=== PATIENT | male | born 1995 | race Two or more races ===

== ENCOUNTER 2016-03-11 10:07 | Emergency (ER) | payer BC, OTHER ==
[2016-03-11 10:20] VITALS: BP 119/69; PULSE 59; TEMP 98.4; BMI 30.2
--- NOTE | 2016-03-11 10:53 | PDOC ---
History of Present Illness - General History Source: Patient Exam Limitations: No Limitations - History of Present Illness Initial Comments: 03/11/16 10:55 The patient is a 20-year-old man, current everyday cigarette smoker, accompanied by family with no past medical history who presents to the emergency department via walk-in for further evaluation of abdominal pain since this morning. He describes his abdominal pain as an achy, constant, diffuse sensation with a 9/10 in severity that is associated nausea and vomiting (non- bloody/non-bilious). He does not provide any exacerbating/alleviating factors. No trauma/recent sick contacts, recent travel. He denies chest pain, cough, shortness of breath, headache, fevers, chills. Allergies: None Known Past Surgical History: None reported Social History: Current everyday cigarette smoker (approximately 2 cigarettes/ day). No ETOH and recreational drug use. Primary Care Physician: Dr. Pita Newton [phone] <Yamile Du - Last Filed: 03/11/16 11:06> <Michelle Wharton - Last Filed: 03/11/16 18:40> - General Chief Complaint: Nausea/Vomiting Stated Complaint: VOMITING, ABD PAIN Time Seen by Provider: 03/11/16 10:52 Past History <Yamile Du - Last Filed: 03/11/16 11:06> - Past Medical History Other medical history: denies - Immunization History Immunization Up to Date: Yes - Psycho/Social/Smoking Cessation Hx Anxiety: No Suicidal Ideation: No Smoking History: Current some day smoker Have you smoked in the past 12 months: Yes Number of Cigarettes Smoked Daily: 2 Information on smoking cessation initiated: No Hx Alcohol Use: No Drug/Substance Use Hx: No Substance Use Type: None <Michelle Wharton - Last Filed: 03/11/16 18:40> - Past Medical History Allergies/Adverse Reactions: Allergies Allergy/AdvReac Type Severity Reaction Status Date / Time No Known Allergies Allergy Verified 03/11/16 10:18 Home Medications: Ambulatory Orders NK [No Known Home Medication] 03/11/16 Review of Systems - Review of Systems Able to Perform ROS?: Yes Comments:: 03/11/16 10:57 GENERAL/CONSTITUTIONAL: No fever or chills. No weakness. HEAD, EYES, EARS, NOSE AND THROAT: No change in vision. No ear pain or discharge. No sore throat. CARDIOVASCULAR: No chest pain or shortness of breath. RESPIRATORY: No cough, wheezing, or hemoptysis. GASTROINTESTINAL:Yes: +Abdominal Pain. +Nausea +Vomiting. No diarrhea or constipation. GENITOURINARY: No dysuria, frequency, or change in urination. MUSCULOSKELETAL: No joint or muscle swelling or pain. No neck or back pain. SKIN: No rash NEUROLOGIC: No headache, vertigo, loss of consciousness, or change in strength/ sensation. ENDOCRINE: No increased thirst. No abnormal weight change. HEMATOLOGIC/LYMPHATIC: No anemia, easy bleeding, or history of blood clots. ALLERGIC/IMMUNOLOGIC: No hives or skin allergy. <Yamile Du - Last Filed: 03/11/16 11:06> *Physical Exam - Vital Signs Last Vital Signs Temp Pulse Resp BP Pulse Ox 98.4 F 59 L 20 119/69 98 03/11/16 10:18 03/11/16 10:18 03/11/16 10:18 03/11/16 10:18 03/11/16 10:18 - Physical Exam Comments: 03/11/16 10:57 GENERAL: Awake, alert, and fully oriented, in no acute distress HEAD: No signs of trauma EYES: PERRLA, EOMI, sclera anicteric, conjunctiva clear ENT: Auricles normal inspection, hearing grossly normal, nares patent, oropharynx clear without exudates. Dry mucosa NECK: Normal ROM, supple, no lymphadenopathy, JVD, or masses LUNGS: Breath sounds equal, clear to auscultation bilaterally. No wheezes, and no crackles HEART: Regular rate and rhythm, normal S1 and S2, no murmurs, rubs or gallops ABDOMEN: Soft, there is mild diffuse tenderness to palpation, normoactive bowel sounds. No guarding, no rebound. No masses EXTREMITIES: Normal range of motion, no edema. No clubbing or cyanosis. No cords, erythema, or tenderness NEUROLOGICAL: Cranial nerves II through XII grossly intact. Normal speech <Yamile Du - Last Filed: 03/11/16 11:06> - Vital Signs Last Vital Signs Temp Pulse Resp BP Pulse Ox 98.4 F 59 L 20 119/69 98 03/11/16 10:18 03/11/16 10:18 03/11/16 10:18 03/11/16 10:18 03/11/16 10:18 <Michelle Wharton - Last Filed: 03/11/16 18:40> ED Treatment Course - LABORATORY CBC & Chemistry Diagram: 03/11/16 11:25 03/11/16 11:25 <Michelle Wharton - Last Filed: 03/11/16 18:40> Medical Decision Making - Medical Decision Making 03/11/16 14:01 Patient reassessed. He states that the pain has returned. No focal findings on exam. Will obtain CT for further evaluation. 03/11/16 16:32 Pt reports improvement in symptoms. CT no acute findings. Tolerated juice and crackers PO. Stable for DC home. <Michelle Wharton - Last Filed: 03/11/16 18:40> *DC/Admit/Observation/Transfer - Attestations Scribe Attestion: 03/11/16 10:57 Documentation prepared by aYmile Du, acting as medical dermatologist for Michelle Wharton MD. <Yamile Du - Last Filed: 03/11/16 11:06> - Discharge Dispostion Admit: No <Michelle Wharton - Last Filed: 03/11/16 18:40> Diagnosis at time of Disposition: Abdominal pain Qualifiers: Abdominal location: generalized Qualified Code(s): R10.84 - Generalized abdominal pain Nausea and vomiting Qualifiers: Vomiting type: unspecified Vomiting Intractability: non-intractable Qualified Code(s): R11.2 - Nausea with vomiting, unspecified - Discharge Dispostion Disposition: HOME Condition at time of disposition: Improved - Referrals Referrals: Pita Newton MD [Primary Care Provider] - - Patient Instructions Printed Discharge Instructions: DI for Abdominal Pain-Adult, DI for Vomiting - - Adult
[2016-03-11] MEDS ORDERED: FAMOTIDINE 20 MG/50 ML IVPB 50 ML IVPB ONE ×2 (11:01→11:11)
[2016-03-11] MEDS ORDERED: SODIUM CHLORIDE 1,000 ML IV STA ×2 (11:01→12:41)
[2016-03-11] MEDS ORDERED: ONDANSETRON 4 MG/2 ML VIAL IVPUSH ONE ×2 (11:01→12:41)
[2016-03-11] MEDS ORDERED: ONDANSETRON 4 MG/2 ML VIAL ONE ×2 (11:11→12:44)
[2016-03-11 11:40] LABS: BASOPHIL 0.2 % (0-2.0); MCH 29.2 pg (25.7-33.7); MCHC 33.9 g/dl (32.0-35.9); MEAN CELL VOLUME 86.2 fl (80-96); MEAN PLT VOLUME 9.3 fl (7.5-11.1); NEUTROPHILS 91.1 % (42.8-82.8); PLATELET COUNT 187 K/MM3 (134-434); RDW 13.7 % (11.9-15.9); WHITE BLOOD COUNT 13.5 K/mm3 (4.0-10.0)
[2016-03-11 12:08] LABS: ALBUMIN 4.8 g/dl (3.4-5.0); ANION GAP 8 (8-16); BILIRUBIN,TOTAL 1.1 mg/dL (0.2-1.0); CALCIUM 9.4 mg/dL (8.5-10.1); CO2 24 mmol/L (21-32); CREATININE 0.6 mg/dL (0.7-1.3); GLUCOSE,RANDOM 121 mg/dL (74-106); SGOT/AST 44 U/L (15-37); SGPT/ALT 25 U/L (12-78); TOT PROT 7.9 g/dl (6.4-8.2)
[2016-03-11 12:10] LABS: ALK PHOS 66 U/L (45-117)
[2016-03-11] MEDS ORDERED: KETOROLAC TROMETHAMINE 30 MG/1 ML VIAL IVPUSH ONE (12:41)
[2016-03-11] MEDS ORDERED: KETOROLAC TROMETHAMINE 30 MG/1 ML VIAL ONE (12:44)
[2016-03-11] MEDS ORDERED: morphine CARPU-JECT 2 MG/1 ML DISP.SYRIN IVPUSH ONE ×2 (13:13→14:01)
[2016-03-11] MEDS ORDERED: morphine CARPU-JECT 2 MG/1 ML DISP.SYRIN ONE ×2 (13:16→14:21)
== END 2016-03-11 17:01 | disposition home or self-care (01) ==
LOC: JER 10:07
PROC: 3E033GC Introduction of Other Therapeutic Substance into Peripheral Vein, Percutaneous Approach (ICD-10-PCS; principal; 2016-03-11)
PROC: 3E033NZ Introduction of Analgesics, Hypnotics, Sedatives into Peripheral Vein, Percutaneous Approach (ICD-10-PCS; 2016-03-11)
PROC: 3E0333Z Introduction of Anti-inflammatory into Peripheral Vein, Percutaneous Approach (ICD-10-PCS; 2016-03-11)
PROC: 3E0337Z Introduction of Electrolytic and Water Balance Substance into Peripheral Vein, Percutaneous Approach (ICD-10-PCS; 2016-03-11)
DX: R10.84 Generalized abdominal pain (principal); R11.2 Nausea with vomiting, unspecified; F17.210 Nicotine dependence, cigarettes, uncomplicated
CPT/HCPCS: 36415; 74177-TC; 80053; 83690; 85025; 99283-25

== ENCOUNTER 2016-03-12 09:37 | Emergency (ER) | payer BC, OTHER ==
[2016-03-12] MEDS ORDERED: ONDANSETRON 4 MG/2 ML VIAL ONE ×2 (10:09→11:58)
[2016-03-12] MEDS ORDERED: FAMOTIDINE 20 MG/50 ML IVPB 50 ML IVPB ONE (10:09)
[2016-03-12] MEDS ORDERED: ONDANSETRON 4 MG/2 ML VIAL IVPUSH ONE ×2 (10:10→11:57)
[2016-03-12] MEDS ORDERED: FAMOTIDINE 20 MG/50 ML IVPB 20 MG in PREMIX 50 IVPB ONE (10:10)
[2016-03-12] MEDS ORDERED: SODIUM CHLORIDE 1,000 ML IV STA ×2 (10:10→11:57)
--- NOTE | 2016-03-12 10:18 | PDOC ---
History of Present Illness - General Stated Complaint: ABDOMINAL PAIN,NAUSEA Time Seen by Provider: 03/12/16 09:46 History Source: Patient Exam Limitations: No Limitations - History of Present Illness Initial Comments: 03/12/16 10:07 20-year-old male presents to the ED with complaints of nausea vomiting and generalized pain greater in the epigastric region since yesterday morning. Patient states came to the ER yesterday had labs CAT scan and was sent home after he felt better but states pain returned with nausea and vomiting through the night and has vomited approximately 8 times since then. Patient denies fever , chills, headache, chest pain, shortness of breath, dysuria, or diarrhea. Patient states no medical history and does not take anything for the above. Timing/Duration: reports: constant Quality: reports: mild, cramping Abdominal Pain Onset Location: reports: epigastric Pain Radiation: reports: no radiation Activities at Onset: reports: none Aggravating Factors: improves with: None Alleviating Factors: improves with: None Past History - Past Medical History Allergies/Adverse Reactions: Allergies Allergy/AdvReac Type Severity Reaction Status Date / Time No Known Allergies Allergy Verified 03/11/16 10:18 Home Medications: Ambulatory Orders Metoclopramide HCl [Reglan] 10 mg PO BID PRN #10 tablet 03/12/16 - Immunization History Immunization Up to Date: Yes - Psycho/Social/Smoking Cessation Hx Anxiety: No Suicidal Ideation: No Smoking History: Current some day smoker Have you smoked in the past 12 months: Yes Number of Cigarettes Smoked Daily: 2 Hx Alcohol Use: No Drug/Substance Use Hx: No Substance Use Type: None Patient Lives Alone: No Lives with/in: parents Review of Systems - Review of Systems Able to Perform ROS?: Yes Constitutional: No: Symptoms Reported HEENTM: No: Symptoms Reported Respiratory: No: Symptoms reported Cardiac (ROS): No: Symptoms Reported ABD/GI: Yes: Nausea, Vomiting, Abdominal cramping Musculoskeletal: No: Symptoms Reported Integumentary: No: Symptoms Reported Neurological: No: Symptoms reported Endocrine: No: Symptoms Reported Hematologic/Lymphatic: No: Symptoms Reported *Physical Exam - Physical Exam General Appearance: Yes: Nourished, Appropriately Dressed. No: Apparent Distress HEENT: positive: EOMI, PAMELLA, Pharynx Normal. negative: Pale Conjunctivae Neck: positive: Supple Respiratory/Chest: positive: Lungs Clear, Normal Breath Sounds, Respiratory Distress. negative: Accessory Muscle Use Cardiovascular: positive: Regular Rhythm, Regular Rate. negative: Murmur Gastrointestinal/Abdominal: positive: Soft, Tenderness (epigastric) Musculoskeletal: negative: CVA Tenderness Extremity: positive: Normal Capillary Refill. negative: Pedal Edema Integumentary: positive: Normal Color, Warm, Moist Neurologic: positive: Motor Strength 5/5 (ambulatory) ED Treatment Course - LABORATORY CBC & Chemistry Diagram: 03/12/16 11:08 03/12/16 10:30 Medical Decision Making - Medical Decision Making 03/12/16 10:17 Patient with nausea vomiting epigastric pain since yesterday. Patient had an abdominal CT done here which was negative for acute findings. Patient given fluids and morphine with good effect. Patient was tolerating by mouth pro-time of discharge. Patient states was sent home with no medication and states pain returned last night. Patient did have epigastric tenderness with no right upper quadrant tenderness. Patient had normal vital signs upon arrival. Patient ordered for labs including CBC, comp magnesium urine since no urine was obtained yesterday. Patient also had Zofran, Pepcid and fluids ordered.. 03/12/16 12:26 Laboratory Tests 03/12/16 03/12/16 10:30 11:08 WBC 12.5 H Hgb 15.8 Hct 47.2 Neutrophils % 83.5 H Sodium 140 Potassium 4.0 Chloride 104 Carbon Dioxide 26 BUN 8 Creatinine 1.0 D Random Glucose 96 D Magnesium 2.0 Total Bilirubin 2.3 H D AST 48 H ALT 26 Pt ordered for lipase and 2nd bag of fluid. Pt states nausea is returning so zofran ordered 03/12/16 13:19 Laboratory Tests 03/12/16 03/12/16 10:30 10:30 D-Dimer < 200 Lipase 55 L 03/12/16 15:48 Patient now tolerating ice chips and crackers. Patient will be discharged home with Reglan as even after the second dose of Zofran, and the nausea returned. Patient forgot to give urine specimen so explained to patient I need a urine specimen. Patient will try to obtain presently otherwise patient will be discharged home 03/12/16 16:31 Laboratory Tests 03/12/16 15:33 Urine Ketones Trace H Urine Blood Negative Urine Nitrite Negative Ur Leukocyte Esterase Negative *DC/Admit/Observation/Transfer Diagnosis at time of Disposition: Nausea and vomiting Qualifiers: Vomiting type: unspecified Vomiting Intractability: intractable Qualified Code( s): R11.2 - Nausea with vomiting, unspecified Abdominal pain Qualifiers: Abdominal location: epigastric Qualified Code(s): R10.13 - Epigastric pain - Discharge Dispostion Disposition: HOME Condition at time of disposition: Improved - Prescriptions Prescriptions: Metoclopramide HCl [Reglan] 10 mg PO BID PRN #10 tablet PRN Reason: Nausea - Referrals Referrals: Pita Newton MD [Primary Care Provider] - - Patient Instructions Printed Discharge Instructions: Nausea and Vomiting-Adult Additional Instructions: Clear liquids today. Advance to soft foods tomorrow. May take Reglan as needed for nausea. If symptoms worsen may return to the ED.
[2016-03-12 10:40] VITALS: BMI 30.2
[2016-03-12] MEDS ORDERED: morphine CARPU-JECT 2 MG/1 ML DISP.SYRIN IVPUSH ONE (10:50)
[2016-03-12] MEDS ORDERED: morphine CARPU-JECT 4 MG/1 ML DISP.SYRIN ONE (10:51)
[2016-03-12 11:21] LABS: BASOPHIL 0.4 % (0-2.0); EOSINOPHIL 0.1 % (0-4.5); MCH 28.9 pg (25.7-33.7); MCHC 33.4 g/dl (32.0-35.9); MEAN CELL VOLUME 86.6 fl (80-96); MEAN PLT VOLUME 9.7 fl (7.5-11.1); NEUTROPHILS 83.5 % (42.8-82.8); PLATELET COUNT 199 K/MM3 (134-434); RDW 13.7 % (11.9-15.9); WHITE BLOOD COUNT 12.5 K/mm3 (4.0-10.0)
[2016-03-12 11:36] LABS: ALBUMIN 4.8 g/dl (3.4-5.0); ALK PHOS 75 U/L (45-117); ANION GAP 10 (8-16); BILIRUBIN,TOTAL 2.3 mg/dL (0.2-1.0); CALCIUM 9.8 mg/dL (8.5-10.1); CO2 26 mmol/L (21-32); GLUCOSE,RANDOM 96 mg/dL (74-106); SGOT/AST 48 U/L (15-37); SGPT/ALT 26 U/L (12-78); TOT PROT 8.1 g/dl (6.4-8.2)
[2016-03-12] MEDS ORDERED: METOCLOPRAMIDE HCL INJECTION 10 MG/2 ML VIAL IVPB ONE (13:19)
[2016-03-12] MEDS ORDERED: METOCLOPRAMIDE HCL INJECTION 10 MG/2 ML VIAL ONE (13:38)
[2016-03-12 16:03] LABS: URINE APPEARANCE CLEAR; URINE BILIRUBIN NEGATIVE (NEGATIVE); URINE BLOOD NEGATIVE (NEGATIVE); URINE COLOR YELLOW; URINE GLUCOSE (UA) NEGATIVE (NEGATIVE); URINE KETONE TRACE (NEGATIVE); URINE LEUK ESTERASE NEGATIVE (NEGATIVE); URINE NITRITE NEGATIVE (NEGATIVE); URINE PROTEIN NEGATIVE (NEGATIVE); URINE UROBILINOGEN NEGATIVE E.U./dl (0.2-1.0)
[2016-03-12 16:37] VITALS: BP 109/59; PULSE 82; TEMP 98.1
--- NOTE | 2016-03-12 17:17 | PDOC ---
*Physical Exam - Vital Signs Last Vital Signs Temp Pulse Resp BP Pulse Ox 98.1 F 82 16 109/59 100 03/12/16 16:35 03/12/16 16:35 03/12/16 16:35 03/12/16 16:35 03/12/16 16:35 ED Treatment Course - LABORATORY CBC & Chemistry Diagram: 03/12/16 11:08 03/12/16 10:30 - ADDITIONAL ORDERS Additional order review: Laboratory Results 03/12/16 03/12/16 03/12/16 15:33 10:30 10:30 D-Dimer < 200 Sodium 140 Potassium 4.0 Chloride 104 Carbon Dioxide 26 Anion Gap 10 BUN 8 Creatinine 1.0 D Creat Clearance w eGFR > 60 Random Glucose 96 D Calcium 9.8 Magnesium 2.0 Total Bilirubin 2.3 H D AST 48 H ALT 26 Alkaline Phosphatase 75 Total Protein 8.1 Albumin 4.8 Lipase 55 L Urine Color Yellow Urine Appearance Clear Urine pH 6.0 Ur Specific [place] 1.017 Urine Protein Negative Urine Glucose (UA) Negative Urine Ketones Trace H Urine Blood Negative Urine Nitrite Negative Urine Bilirubin Negative Urine Urobilinogen Negative Ur Leukocyte Esterase Negative 03/12/16 11:08 RBC 5.45 MCV 86.6 MCHC 33.4 RDW 13.7 MPV 9.7 Neutrophils % 83.5 H Lymphocytes % 13.1 D Monocytes % 2.9 L D Eosinophils % 0.1 D Basophils % 0.4 - Medications Given in the ED: ED Medications Discontinued Medications Generic Name Dose Route Start Last Admin Trade Name Freq PRN Reason Stop Dose Admin Famotidine/Sodium Chloride 20 50 mls @ 100 mls/hr 03/12/16 10:10 03/12/16 10:13 mg/ Miscellaneous IVPB 03/12/16 10:39 100 mls/hr ONCE ONE Administration Sodium Chloride 1,000 mls @ 1,000 mls/hr 03/12/16 10:10 03/12/16 10:15 Normal Saline - IV 03/12/16 11:09 1,000 mls/hr ASDIR STA Administration Sodium Chloride 1,000 mls @ 1,000 mls/hr 03/12/16 11:57 03/12/16 12:05 Normal Saline - IV 03/12/16 12:56 1,000 mls/hr ASDIR STA Administration Metoclopramide HCl 10 mg 03/12/16 13:19 03/12/16 13:42 Reglan Injection - IVPB 03/12/16 13:20 10 mg ONCE ONE Administration Morphine Sulfate 4 mg 03/12/16 10:50 03/12/16 10:54 Morphine Injection - IVPUSH 03/12/16 10:51 4 mg ONCE ONE Administration Ondansetron HCl 4 mg 03/12/16 10:10 03/12/16 10:12 Zofran Injection IVPUSH 03/12/16 10:11 4 mg ONCE ONE Administration Ondansetron HCl 4 mg 03/12/16 11:57 03/12/16 12:05 Zofran Injection IVPUSH 03/12/16 11:58 4 mg ONCE ONE Administration Medical Decision Making - Medical Decision Making 03/12/16 17:16 20 yo M presenting to the ER with N/V/ D and epigastric pain Pt seen by Midlevel Provider under my direct supervision Ancillary studies reviewed I agree with plan as outlined by Midlevel Provider *DC/Admit/Observation/Transfer Diagnosis at time of Disposition: Nausea and vomiting Qualifiers: Vomiting type: unspecified Vomiting Intractability: intractable Qualified Code( s): R11.2 - Nausea with vomiting, unspecified Abdominal pain Qualifiers: Abdominal location: epigastric Qualified Code(s): R10.13 - Epigastric pain - Discharge Dispostion Disposition: HOME Condition at time of disposition: Improved - Prescriptions Prescriptions: Metoclopramide HCl [Reglan] 10 mg PO BID PRN #10 tablet PRN Reason: Nausea - Referrals Referrals: Pita Newton MD [Primary Care Provider] - - Patient Instructions Printed Discharge Instructions: Nausea and Vomiting-Adult Additional Instructions: Clear liquids today. Advance to soft foods tomorrow. May take Reglan as needed for nausea. If symptoms worsen may return to the ED. - Post Discharge Activity
== END 2016-03-12 16:37 | disposition home or self-care (01) ==
LOC: JER 09:37
PROC: 3E0337Z Introduction of Electrolytic and Water Balance Substance into Peripheral Vein, Percutaneous Approach (ICD-10-PCS; principal; 2016-03-12)
PROC: 3E033GC Introduction of Other Therapeutic Substance into Peripheral Vein, Percutaneous Approach (ICD-10-PCS; 2016-03-12)
PROC: 3E033NZ Introduction of Analgesics, Hypnotics, Sedatives into Peripheral Vein, Percutaneous Approach (ICD-10-PCS; 2016-03-12)
DX: R10.13 Epigastric pain (principal); R11.2 Nausea with vomiting, unspecified
CPT/HCPCS: 36415; 80053; 81003; 83690; 83735; 85025; 85379; 99283-25

== ENCOUNTER 2016-03-13 08:29 | Observation (INO) | payer OTHER, BC ==
[2016-03-13 08:38] VITALS: BMI 30.2
--- NOTE | 2016-03-13 09:04 | PDOC ---
History of Present Illness <Maximo Patel - Last Filed: 03/13/16 12:03> - History of Present Illness Initial Comments: 03/13/16 09:30 Patient is a 20 year old male, every day smoker, with no significant medical hx who is presenting to the ED with three days of epigastric pain, nausea, vomiting , and some diarrhea. The patient has been to the ED twice in the past two days for the same complaint. He has returned to the ED today because he is unable to keep anything down. Denies fever, chills, or changes in urination. <Juliana Agee - Last Filed: 03/13/16 13:53> - General Chief Complaint: Nausea/Vomiting Stated Complaint: ABDOMINAL PAIN Time Seen by Provider: 03/13/16 09:04 Past History - Immunization History Immunization Up to Date: Yes - Psycho/Social/Smoking Cessation Hx Anxiety: No Suicidal Ideation: No Smoking History: Never smoked Have you smoked in the past 12 months: No Number of Cigarettes Smoked Daily: 2 Information on smoking cessation initiated: No Hx Alcohol Use: Yes ("occasionally") Drug/Substance Use Hx: No Substance Use Type: None <Maximo Patel - Last Filed: 03/13/16 12:03> <Juliana Agee - Last Filed: 03/13/16 13:53> - Past Medical History Allergies/Adverse Reactions: Allergies Allergy/AdvReac Type Severity Reaction Status Date / Time No Known Allergies Allergy Verified 03/13/16 08:35 Home Medications: Ambulatory Orders Metoclopramide HCl [Reglan] 10 mg PO BID PRN #10 tablet 03/12/16 Review of Systems - Review of Systems Comments:: 03/13/16 09:30 CONSTITUTIONAL: Absent: fever, chills, diaphoresis, generalized weakness, malaise, loss of appetite HEENT: Absent: rhinorrhea, nasal congestion, throat pain, throat swelling, difficulty swallowing, mouth swelling, ear pain, eye pain, visual changes CARDIOVASCULAR: Absent: chest pain, syncope, palpitations, irregular heart rate, lightheadedness , peripheral edema RESPIRATORY: Absent: cough, shortness of breath, dyspnea with exertion, orthopnea, wheezing, stridor, hemoptysis GASTROINTESTINAL: Present: epigastric pain, nausea, vomiting, diarrhea Absent: abdominal distension, constipation, melena, hematochezia GENITOURINARY: Absent: dysuria, frequency, urgency, hesitancy, hematuria, flank pain, genital pain MUSCULOSKELETAL: Absent: myalgia, arthralgia, joint swelling SKIN: Absent: rash, itching, pallor HEMATOLOGIC/IMMUNOLOGIC: Absent: easy bleeding, easy bruising, lymphadenopathy, frequent infections ENDOCRINE: Absent: unexplained weight gain, unexplained weight loss, heat intolerance, cold intolerance NEUROLOGIC: Absent: headache, focal weakness or paresthesia, dizziness, unsteady gait, seizure, mental status changes, bladder or bowel incontinence. PSYCHIATRIC: Absent: anxiety, depression, suicidal or homicidal ideation, hallucinations <CyndieJuliana - Last Filed: 03/13/16 13:53> *Physical Exam - Vital Signs Last Vital Signs Temp Pulse Resp BP Pulse Ox 98.4 F 51 L 19 133/75 100 03/13/16 08:35 03/13/16 08:35 03/13/16 08:35 03/13/16 08:35 03/13/16 08:35 <Maximo Patel - Last Filed: 03/13/16 12:03> - Vital Signs Last Vital Signs Temp Pulse Resp BP Pulse Ox 98.4 F 51 L 19 133/75 100 03/13/16 08:35 03/13/16 08:35 03/13/16 08:35 03/13/16 08:35 03/13/16 08:35 - Physical Exam Comments: 03/13/16 09:32 GENERAL: Well developed, well nourished. Awake and alert. No acute distress. HEENT: Normocephalic, atraumatic. PERRLA, EOMI. No conjunctival pallor. Sclera are non- icteric. Dry mucous membranes. Oropharynx is clear. NECK: Supple. Full ROM. No JVD. Carotid pulses 2+ and symmetric, without bruits. No thyromegaly. No lymphadenopathy. CARDIOVASCULAR: Regular rate and rhythm. No murmurs, rubs, or gallops. Distal pulses are 2+ and symmetric. PULMONARY: No evidence of respiratory distress. Lungs clear to auscultation bilaterally. No wheezing, rales or rhonchi. ABDOMINAL: Soft. Epigastric tenderness. Non-distended. No rebound or guarding. No organomegaly. Normoactive bowel sounds. MUSCULOSKELETAL: Normal range of motion at all joints. No bony deformities or tenderness. No CVA tenderness. EXTREMITIES: No cyanosis. No clubbing. No edema. No calf tenderness. SKIN: Warm and dry. Normal capillary refill. No rashes. No jaundice. NEUROLOGICAL: Alert, awake, appropriate. Cranial nerves 2-12 intact. Normal speech. Gait is normal without ataxia. PSYCHIATRIC: Cooperative. Good eye contact. Appropriate mood and affect. <Juliana Agee - Last Filed: 03/13/16 13:53> ED Treatment Course - LABORATORY CBC & Chemistry Diagram: 03/13/16 09:39 03/13/16 09:39 <Maximo Patel - Last Filed: 03/13/16 12:03> - LABORATORY CBC & Chemistry Diagram: 03/13/16 09:39 03/13/16 09:39 - RADIOLOGY Radiograph Interpretation: 03/13/16 13:52 Gallbladder US Impression: Over distended gallbladder without intraluminal stones, thickening of its wall or pericholecystic free fluid. Reported By: Ezio Peoples MD <Juliana Agee - Last Filed: 03/13/16 13:53> *DC/Admit/Observation/Transfer - Discharge Dispostion Admit: Yes <Maximo Patel - Last Filed: 03/13/16 12:03> - Attestations Scribe Attestion: 03/13/16 09:32 Documentation prepared by Juliana Agee, acting as medical transcription for Maximo Patel MD. <Juliana Agee - Last Filed: 03/13/16 13:53> Diagnosis at time of Disposition: Gastroenteritis Nausea and vomiting Qualifiers: Vomiting type: cyclical vomiting Vomiting Intractability: intractable Qualified Code(s): G43.A1 - Cyclical vomiting, intractable Abdominal pain Qualifiers: Abdominal location: epigastric Qualified Code(s): R10.13 - Epigastric pain - Discharge Dispostion Condition at time of disposition: Stable
[2016-03-13] MEDS ORDERED: ONDANSETRON 4 MG/2 ML VIAL ONE (09:19)
[2016-03-13] MEDS ORDERED: ONDANSETRON 4 MG/2 ML VIAL IVPUSH ONE (09:19)
[2016-03-13] MEDS ORDERED: SODIUM CHLORIDE 2,000 ML IV STA (09:20)
[2016-03-13] MEDS ORDERED: FAMOTIDINE 20 MG/50 ML IVPB 50 ML IVPB ONE ×2 (09:21→09:44)
[2016-03-13 10:01] LABS: BASOPHIL 0.5 % (0-2.0); EOSINOPHIL 0.1 % (0-4.5); MCH 29.2 pg (25.7-33.7); MCHC 34.1 g/dl (32.0-35.9); MEAN CELL VOLUME 85.8 fl (80-96); MEAN PLT VOLUME 9.5 fl (7.5-11.1); NEUTROPHILS 73.1 % (42.8-82.8); PLATELET COUNT 184 K/MM3 (134-434); RDW 13.6 % (11.9-15.9); WHITE BLOOD COUNT 9.3 K/mm3 (4.0-10.0)
[2016-03-13] MEDS ORDERED: morphine CARPU-JECT 4 MG/1 ML DISP.SYRIN IVPUSH ONE (10:32)
[2016-03-13 10:35] LABS: ALBUMIN 4.4 g/dl (3.4-5.0); ANION GAP 9 (8-16); BILIRUBIN,TOTAL 3.2 mg/dL (0.2-1.0); CALCIUM 9.2 mg/dL (8.5-10.1); CO2 25 mmol/L (21-32); CREATININE 0.9 mg/dL (0.7-1.3); GLUCOSE,RANDOM 93 mg/dL (74-106); SGOT/AST 62 U/L (15-37); SGPT/ALT 48 U/L (12-78); TOT PROT 7.5 g/dl (6.4-8.2)
[2016-03-13 10:36] LABS: ALK PHOS 69 U/L (45-117)
[2016-03-13] MEDS ORDERED: morphine CARPU-JECT 4 MG/1 ML DISP.SYRIN ONE (10:46)
[2016-03-13 10:51] LABS: URINE APPEARANCE CLEAR; URINE BILIRUBIN NEGATIVE (NEGATIVE); URINE BLOOD NEGATIVE (NEGATIVE); URINE COLOR STRAW; URINE GLUCOSE (UA) NEGATIVE (NEGATIVE); URINE KETONE 1+ (NEGATIVE); URINE LEUK ESTERASE NEGATIVE (NEGATIVE); URINE NITRITE NEGATIVE (NEGATIVE); URINE PROTEIN NEGATIVE (NEGATIVE); URINE UROBILINOGEN NEGATIVE E.U./dl (0.2-1.0)
[2016-03-13] MEDS ORDERED: ONDANSETRON 4 MG/2 ML VIAL IVPB PRN (12:03)
[2016-03-13] MEDS ORDERED: ACETAMINOPHEN 325 MG TABLET (FP) PO PRN (12:03)
[2016-03-13] MEDS ORDERED: SODIUM CHLORIDE 0.9%/KCL 1,000 ML IV SCH (12:15)
[2016-03-13] MEDS ORDERED: SODIUM CHLORIDE 1,000 ML IV SCH (12:15)
[2016-03-13 12:29] LABS: BILIRUBIN,DIRECT 0.6 mg/dL (0.0-0.2)
[2016-03-13] MEDS ORDERED: METOCLOPRAMIDE HCL INJECTION 10 MG/2 ML VIAL IVPB ONE (12:37)
--- NOTE | 2016-03-13 12:37 | HP ---
CHIEF COMPLAINT: Vomiting PCP: Dr. Newton HISTORY OF PRESENT ILLNESS: This is an otherwise healthy 20 year old male who presented to the ED for the third time this week complaining of vomiting/ inability to tolerate oral fluids, epigastric pain, and some diarrhea. Prior workup on these visits included a CT of the abdomen/pelvis which demonstrated no pathology. ER course today was notable for: (1) Tbili 3.2 (2.3 yesterday, 1.1 day before) (2) AST mildly elevated at 62 (3) Mild hypokalemia 3.3 Recent Travel: None, attends [employer] in [place] Social History: College student Smokin cigarettes/daily Alcohol: Occasional Drugs: None Family History: Father with DM, mother with HTN Allergies No Known Allergies Allergy (Verified 03/13/16 08:35) HOME MEDICATIONS:a Medication Instructions Recorded Metoclopramide HCl [Reglan] 10 mg PO BID PRN #10 tablet 03/12/16 REVIEW OF SYSTEMS CONSTITUTIONAL: Absent: fever, chills, diaphoresis, generalized weakness, malaise, weight change HEENT: Absent: rhinorrhea, nasal congestion, throat pain, throat swelling, difficulty swallowing, mouth swelling, ear pain, eye pain, visual changes CARDIOVASCULAR: Absent: chest pain, syncope, palpitations, irregular heart rate, lightheadedness , peripheral edema RESPIRATORY: Absent: cough, shortness of breath, dyspnea with exertion, orthopnea, wheezing, stridor, hemoptysis GASTROINTESTINAL: See HPI GENITOURINARY: Decreased urine output (1-2 times/day) MUSCULOSKELETAL: Absent: myalgia, arthralgia, joint swelling, back pain, neck pain SKIN: Absent: rash, itching, pallor HEMATOLOGIC/IMMUNOLOGIC: Absent: easy bleeding, easy bruising, lymphadenopathy, frequent infections ENDOCRINE: Absent: unexplained weight gain, unexplained weight loss, heat intolerance, cold intolerance NEUROLOGIC: Absent: headache, focal weakness or paresthesias, dizziness, unsteady gait, seizure, mental status changes, bladder or bowel incontinence PSYCHIATRIC: Absent: anxiety, depression, suicidal or homicidal ideation, hallucinations. PHYSICAL EXAMINATION GENERAL: Awake, alert, and fully oriented, in no acute distress. HEAD: Normal with no signs of trauma. EYES: Pupils equal, round and reactive to light, extraocular movements intact, sclera anicteric, conjunctiva clear. No lid lag. EARS, NOSE, THROAT: Ears normal, nares patent, oropharynx clear without exudates. Moist mucous membranes. NECK: Normal range of motion, supple without lymphadenopathy, JVD, or masses. LUNGS: Breath sounds equal, clear to auscultation bilaterally. No wheezes, and no crackles. No accessory muscle use. HEART: Regular rate and rhythm, normal S1 and S2 without murmur, rub or gallop. ABDOMEN: Soft, no focal tenderness, not distended, normoactive bowel sounds, no guarding, no rebound, no masses. No hepatomegaly or splenomegaly. MUSCULOSKELETAL: Normal range of motion at all joints. No bony deformities or tenderness. No CVA tenderness. UPPER EXTREMITIES: 2+ pulses, warm, well-perfused. No cyanosis. No clubbing. Cap refill <2 seconds. No peripheral edema. LOWER EXTREMITIES: 2+ pulses, warm, well-perfused. No calf tenderness. No peripheral edema. NEUROLOGICAL: Cranial nerves II-XII intact. Normal speech. Normal gait. PSYCHIATRIC: Cooperative. Good eye contact. Appropriate mood and affect. SKIN: Warm, dry, normal turgor, no rashes or lesions noted. ASSESSMENT/PLAN: Problem List - Problem (1) Nausea and vomiting Assessment/Plan: -Continue Zofran q6h prn nausea -Reglan 10mg IVPB + Benadryl 12.5mg IVP x 1 now -IV hydration -Follow electrolytes -Clear liquids, advance as tolerated -GI was consulted in ED Code(s): R11.2 - NAUSEA WITH VOMITING, UNSPECIFIED Qualifiers: Vomiting type: cyclical vomiting Vomiting Intractability: intractable Qualified Code(s): G43.A1 - Cyclical vomiting, intractable (2) Total bilirubin, elevated Assessment/Plan: -With mild elevation in AST -Send direct/indirect bili -Gallbladder u/s -Follow -Outpatient GI followup Code(s): R17 - UNSPECIFIED JAUNDICE (3) DVT prophylaxis Assessment/Plan: -Low risk (short expected length of stay) -Early ambulation ADDENDUM: 4:45pm: Notified by RN of HR 43. EKG repeated, sinus elijah 47bpm. Patient denies lightheadedness, chest pain, shortness of breath, or any other symptoms. States that he exercises frequently. Code(s): WQT1441 - Visit type - Emergency Visit Emergency Visit: Yes ED Registration Date: 03/13/16 Care time: The patient presented to the Emergency Department on the above date and was hospitalized for further evaluation of their emergent condition. - New Patient This patient is new to me today: Yes Date on this admission: 03/13/16 - Critical Care Critical Care patient: No
[2016-03-13 13:08] LABS: URINE MARIJUANA THC POSITIVE ng/ml (CUTOFF=50)
--- NOTE | 2016-03-13 13:32 | PN ---
Progress Note (short form) - Note Progress Note: gi consultation please see full dictation non-toxic appearing/ suspect viral illness if improved can f/u as outpatient as discussed d/w ER International Controller thank you, md willie
[2016-03-13] MEDS: SODIUM CHLORIDE 1,000 ML IV SCH (17:24)
--- NOTE | 2016-03-13 21:27 | CONS ---
DATE OF CONSULTATION: 03/13/2016 GASTROENTEROLOGY CONSULTATION HISTORY OF PRESENT ILLNESS: I was asked by the ER to evaluate the patient for abdominal pain, nausea, and vomiting. The patient is a 20-year-old gentleman who goes to [employer]. He has been home on break. He has no past medical history, and apparently he noted that 3 days ago he woke up and he was feeling sick with fevers, chills, nausea, vomiting, and epigastric discomfort. He felt like he was getting the flu. He felt very washed out, weak, and dehydrated, and he presented to [facility] emergency room. At that time, he was hydrated, was told that he probably had a viral illness. He was feeling a lot better. He was given some pain medication and he was sent home. That evening he went home, he ate some crackers, and the following morning he woke up and again he felt quite sick. He was having nausea, he vomited a couple more times, he had 1 loose stool no blood. He felt chills, and he was not able to keep any food down, so his family took him back to the emergency room at which time he was given some morphine and IV fluid. He had a CT scan of the abdomen and pelvis that was completely unremarkable. His blood work noted a minimal elevation in bilirubin. He was treated conservatively, and again he was discharged. Apparently, today the same symptoms ensued, and he came back to the hospital. His mom was concerned he has not eaten in 4 days. He says he had another loose bowel movement. It has not been pure water, it has just been loose no blood, but he has only been going once a day. He thinks he has been urinating concerned about that. He is still feeling some diffuse muscle aches, epigastric discomfort. The pain does not travel anywhere. There is no significant heartburn. He tells me he has never had any GI issues in the past . There is no personal or family history of celiac, Crohn's, or ulcerative colitis. The patient has not had any recent travel, although he had eaten a hamburger the day prior to this all starting. Other family members ate the same food, and no one else had gotten sick. The patient does not take any medication, although when he comes to the ER they sent him home on Zofran, which he had been taking, which has not been helping. Currently in the hospital he has been getting a concoction of Zofran, Tylenol, Pepcid, and IV fluid, and some morphine. He has also gotten some Reglan, and he feels a lot better. The patient states that he normally does not take nonsteroidals, and normally he has no difficulty eating. He has had no prior surgical history, no known drug allergies. 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 He is single. There is no significant family history except his father has diabetes and his mother has hypertension. PHYSICAL EXAMINATION: General: He is in absolutely no acute distress. He is moving about easily. He is well-developed, well-nourished, very healthy appearing gentleman. Skin: Cool. HEENT: Sclerae anicteric. Neck: Supple. Lungs: Clear from anterior. Heart: Regular. Abdomen: Good bowel sounds. Extremely soft. He is not distended. There is no tenderness to deep palpation. No masses, rebound, or guarding. LABORATORY DATA: His white count is 9 with an hemoglobin and hematocrit of 15 over 44 with an MCV of 86 and 184,000 platelets. His chemistries reveal a serum sodium of 137, potassium 3.3, chloride 103, bicarbonate 25, BUN 7, creatinine 0.9, calcium 9.2, magnesium 2. His total bilirubin is 3.2. The direct has been pretty normal at 0.6. AST 62, ALT 48, alkaline phosphatase 69, total protein 7.5, albumin 4.4, lipase 67. His urinalysis is essentially unremarkable and specific gravity is 1.011. In terms of imaging, it is noted he has a CT scan of the abdomen and pelvis. This was done on March 11 which was done with contrast and was completely unremarkable. 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 It all sounds more suspicious for some type of viral illness. It does not sound like a chronic indolent disease such as Crohn's or celiac, but more like a viral syndrome that he has, and I suspect the liver function tests may be involved. The elevated bilaterally likely reflects . There is no evidence of any biliary tract disease. RECOMMENDATION: My recommendation would be continued supportive care, and as an outpatient he should undergo followup of his liver enzymes. If they do not normalize, then we would send off hepatitis serologies and test for esoteric liver disease such as autoimmune hepatitis, hemochromatosis, Johnathan's, things like that. But for now, there is no evidence of ongoing liver disease and family, and I would recommend continued conservative care. I also doubt that he has an ulcer, but if he is unable to keep food down and this persists, certainly we could do an upper endoscopy. We will continue to be available in the aid and management of this patient. LIN HAYES M.D. DARRION/[id number]
[2016-03-13] MEDS: FAMOTIDINE 20 MG/50 ML IVPB 50 ML IVPB SCH (22:00)
[2016-03-14 07:38] LABS: BASOPHIL 0.5 % (0-2.0); EOSINOPHIL 1.2 % (0-4.5); MCH 29.9 pg (25.7-33.7); MCHC 34.8 g/dl (32.0-35.9); MEAN CELL VOLUME 85.9 fl (80-96); NEUTROPHILS 53.9 % (42.8-82.8); PLATELET COUNT 163 K/MM3 (134-434); RDW 13.6 % (11.9-15.9); WHITE BLOOD COUNT 7.9 K/mm3 (4.0-10.0)
[2016-03-14 08:13] LABS: ALBUMIN 3.7 g/dl (3.4-5.0); ANION GAP 7 (8-16); CALCIUM 8.5 mg/dL (8.5-10.1); CO2 28 mmol/L (21-32); CREATININE 0.7 mg/dL (0.7-1.3); GLUCOSE,RANDOM 80 mg/dL (74-106); MAGNESIUM 1.9 mg/dL (1.8-2.4); SGOT/AST 50 U/L (15-37); SGPT/ALT 59 U/L (12-78)
[2016-03-14 08:14] LABS: ALK PHOS 60 U/L (45-117); BILIRUBIN,TOTAL 3.4 mg/dL (0.2-1.0); TOT PROT 6.3 g/dl (6.4-8.2)
[2016-03-14] MEDS: FAMOTIDINE 20 MG/50 ML IVPB 50 ML IVPB SCH ×2 (09:17→21:01)
[2016-03-14] MEDS: SODIUM CHLORIDE 1,000 ML IV SCH (09:19)
[2016-03-14] MEDS ORDERED: SODIUM CHLORIDE 1,000 ML IV SCH (14:46)
--- NOTE | 2016-03-14 16:35 | PN ---
Physical Exam: SUBJECTIVE: Patient seen and examined, patient feel better accepting clear liquid, had last episode of vomiting this morning OBJECTIVE: Vital Signs Period Temp Pulse Resp BP Sys/Fields Pulse Ox Last 24 Hr 98.3 F-98.8 F 44-49 18-20 119-135/46-73 97-97 GENERAL: The patient is awake, alert, and fully oriented, in no acute distress. HEAD: Normal with no signs of trauma. EYES: PERRL, extraocular movements intact, sclera anicteric, conjunctiva clear. No ptosis. ENT: Ears normal, nares patent, oropharynx clear without exudates, moist mucous membranes. NECK: Trachea midline, full range of motion, supple. LUNGS: Breath sounds equal, clear to auscultation bilaterally, no wheezes, no crackles, no accessory muscle use. HEART: Regular rate and rhythm, S1, S2 without murmur, rub or gallop. ABDOMEN: Soft, nontender, nondistended, normoactive bowel sounds, no guarding, no rebound, no hepatosplenomegaly, no masses. EXTREMITIES: 2+ pulses, warm, well-perfused, no edema. NEUROLOGICAL: Cranial nerves II through XII grossly intact. Normal speech, gait not observed. PSYCH: Normal mood, normal affect. SKIN: Warm, dry, normal turgor, no rashes or lesions noted Laboratory Results - last 24 hr 03/14/16 03/14/16 06:40 06:40 WBC 7.9 RBC 4.61 Hgb 13.8 Hct 39.6 MCV 85.9 MCHC 34.8 RDW 13.6 Plt Count 163 MPV 9.0 Neutrophils % 53.9 D Lymphocytes % 35.8 D Monocytes % 8.6 Eosinophils % 1.2 D Basophils % 0.5 Sodium 141 Potassium 4.0 D Chloride 106 Carbon Dioxide 28 Anion Gap 7 L BUN 6 L Creatinine 0.7 D Creat Clearance w eGFR > 60 Random Glucose 80 Calcium 8.5 Magnesium 1.9 Total Bilirubin 3.4 H AST 50 H ALT 59 D Alkaline Phosphatase 60 Total Protein 6.3 L Albumin 3.7 Active Medications Generic Name Dose Route Start Last Admin Trade Name Freq PRN Reason Stop Dose Admin Acetaminophen 650 mg 03/13/16 12:03 Tylenol - PO Q4H PRN FEVER OR PAIN Famotidine/Sodium Chloride 50 mls @ 100 mls/hr 03/13/16 22:00 03/14/16 09:17 Pepcid 20 Mg Premixed Ivpb - IVPB 100 mls/hr BID BHARTI Administration Sodium Chloride 1,000 mls @ 125 mls/hr 03/14/16 14:46 03/14/16 15:53 Normal Saline - IV 03/15/16 01:14 125 mls/hr ASDIR BHARTI Administration Ondansetron HCl 4 mg 03/13/16 12:03 Zofran Injection IVPB Q6H PRN NAUSEA ASSESSMENT/PLAN: This is an otherwise healthy 20 year old male who presented to the ED for the third time this week complaining of vomiting/inability to tolerate oral fluids, epigastric pain, and some diarrhea. Prior workup on these visits included a CT of the abdomen/pelvis which demonstrated no pathology. viral gastritis on iv fluid accepting orally clear liquid will advance diet elevated bilrubin follow cmp follow hepatitis panel fluid :Iv 125ml/hr electrolyte : follow in am nutrition; clearl liquid dvt pro ; not required gi pro on famotidinie Dispo: patient in med surg. Visit type - Emergency Visit Emergency Visit: Yes ED Registration Date: 03/13/16 Care time: The patient presented to the Emergency Department on the above date and was hospitalized for further evaluation of their emergent condition. - New Patient This patient is new to me today: Yes Date on this admission: 03/14/16 - Critical Care Critical Care patient: No
--- NOTE | 2016-03-14 17:15 | EKG ---
Test Reason : Blood Pressure : / mmHG Vent. Rate : 052 BPM Atrial Rate : 052 BPM P-R Int : 140 ms QRS Dur : 112 ms QT Int : 446 ms P-R-T Axes : 074 067 068 degrees QTc Int : 414 ms SINUS BRADYCARDIA WITH SINUS ARRHYTHMIA INCOMPLETE RIGHT BUNDLE BRANCH BLOCK BORDERLINE ECG NO PREVIOUS ECGS AVAILABLE Confirmed by JOHN SANCHEZ, MISBAH ([id number]) on 03/14/2016 5:15:05 PM Referred By: CHRISTOFER WILSON Confirmed By:MISBAH LOPEZ MD
--- NOTE | 2016-03-14 17:21 | PN ---
Teaching Attending Note Name of Resident: Narciso Flanagan ATTENDING PHYSICIAN STATEMENT I saw and evaluated the patient. I reviewed the resident's note and discussed the case with the resident. I agree with the resident's findings and plan as documented. SUBJECTIVE: Comfortable with no acute distress, no fever or chills, no shortness of breath. OBJECTIVE: Vital Signs Temperature 98.6 F 03/14/16 15:29 Pulse Rate 44 L 03/14/16 15:29 Respiratory Rate 20 03/14/16 15:29 Blood Pressure 119/64 03/14/16 15:29 O2 Sat by Pulse Oximetry (%) 97 03/14/16 04:00 GENERAL: The patient is awake, alert, and fully oriented, in no acute distress. HEAD: Normal with no signs of trauma. EYES: PERRL, extraocular movements intact, sclera anicteric, conjunctiva clear. No ptosis. ENT: Ears normal, nares patent, oropharynx clear without exudates, moist mucous membranes. NECK: Trachea midline, full range of motion, supple. LUNGS: Breath sounds equal, clear to auscultation bilaterally, no wheezes, no crackles, no accessory muscle use. HEART: Bradycardic, RR, S1, S2 without murmur, rub or gallop. ABDOMEN: Soft, nontender, nondistended, normoactive bowel sounds, no guarding, no rebound, no hepatosplenomegaly, no masses. EXTREMITIES: 2+ pulses, warm, well-perfused, no edema. NEUROLOGICAL: Cranial nerves II through XII grossly intact. Normal speech, gait not observed. PSYCH: Normal mood, normal affect. SKIN: Warm, dry, normal turgor, no rashes or lesions noted CBCD WBC 7.9 K/mm3 (4.0-10.0) 03/14/16 06:40 RBC 4.61 M/mm3 (4.00-5.60) 03/14/16 06:40 Hgb 13.8 GM/dL (11.7-16.9) 03/14/16 06:40 Hct 39.6 % (35.4-49) 03/14/16 06:40 MCV 85.9 fl (80-96) 03/14/16 06:40 MCHC 34.8 g/dl (32.0-35.9) 03/14/16 06:40 RDW 13.6 % (11.9-15.9) 03/14/16 06:40 Plt Count 163 K/MM3 (134-434) 03/14/16 06:40 MPV 9.0 fl (7.5-11.1) 03/14/16 06:40 CMP Sodium 141 mmol/L (136-145) 03/14/16 06:40 Potassium 4.0 mmol/L (3.5-5.1) D 03/14/16 06:40 Chloride 106 mmol/L (98-107) 03/14/16 06:40 Carbon Dioxide 28 mmol/L (21-32) 03/14/16 06:40 Anion Gap 7 (8-16) L 03/14/16 06:40 BUN 6 mg/dL (7-18) L 03/14/16 06:40 Creatinine 0.7 mg/dL (0.7-1.3) D 03/14/16 06:40 Creat Clearance w eGFR > 60 (>60) 03/14/16 06:40 Random Glucose 80 mg/dL (74-106) 03/14/16 06:40 Calcium 8.5 mg/dL (8.5-10.1) 03/14/16 06:40 Total Bilirubin 3.4 mg/dL (0.2-1.0) H 03/14/16 06:40 AST 50 U/L (15-37) H 03/14/16 06:40 ALT 59 U/L (12-78) D 03/14/16 06:40 Alkaline Phosphatase 60 U/L (45-117) 03/14/16 06:40 Total Protein 6.3 g/dl (6.4-8.2) L 03/14/16 06:40 Albumin 3.7 g/dl (3.4-5.0) 03/14/16 06:40 Current Medications Generic Name Dose Route Start Last Admin Trade Name Freq PRN Reason Stop Dose Admin Acetaminophen 650 mg 03/13/16 12:03 Tylenol - PO Q4H PRN FEVER OR PAIN Famotidine/Sodium Chloride 50 mls @ 100 mls/hr 03/13/16 22:00 03/14/16 09:17 Pepcid 20 Mg Premixed Ivpb - IVPB 100 mls/hr BID BHARTI Administration Sodium Chloride 1,000 mls @ 125 mls/hr 03/14/16 14:46 03/14/16 15:53 Normal Saline - IV 03/15/16 01:14 125 mls/hr ASDIR BHARTI Administration Ondansetron HCl 4 mg 03/13/16 12:03 Zofran Injection IVPB Q6H PRN NAUSEA Medication Instructions Recorded Metoclopramide HCl [Reglan] 10 mg PO BID PRN #10 tablet 03/12/16 ASSESSMENT AND PLAN: This is a 20 year old male with no significant PMHx who presented to the ED for the third time this week complaining of vomiting/inability to tolerate oral fluids, epigastric pain, and mild diarrhea. # Acute viral gastritis on iv fluid , will start clears then advance diet #elevated bilrubin will trend , follow cmp ,follow hepatitis panel dvt px :Scds gi pro on famotidinie
[2016-03-15 06:06] LABS: HEP B SURFACE AB Non Reactive (.)
--- NOTE | 2016-03-15 07:21 | DS ---
Physical Exam: SUBJECTIVE: Patient seen and examined OBJECTIVE: Vital Signs Period Temp Pulse Resp BP Sys/Fields Pulse Ox Last 24 Hr 98.4 F-98.8 F 44-55 20-20 112-130/47-75 PHYSICAL EXAM GENERAL: The patient is awake, alert, and fully oriented, in no acute distress. HEAD: Normal with no signs of trauma. EYES: PERRL, extraocular movements intact, sclera anicteric, conjunctiva clear. ENT: Ears normal, nares patent, oropharynx clear without exudates, moist mucous membranes. NECK: Trachea midline, full range of motion, supple. LUNGS: Breath sounds equal, clear to auscultation bilaterally, no wheezes, no crackles, no accessory muscle use. HEART: Regular rate and rhythm, S1, S2 without murmur, rub or gallop. ABDOMEN: Soft, nontender, nondistended, normoactive bowel sounds, no guarding, no rebound, no hepatosplenomegaly, no masses. EXTREMITIES: 2+ pulses, warm, well-perfused, no edema. NEUROLOGICAL: Cranial nerves II through XII grossly intact. Normal speech, gait not observed. PSYCH: Normal mood, normal affect. SKIN: Warm, dry, normal turgor, no rashes or lesions noted. LABS Laboratory Results - last 24 hr 03/14/16 03/14/16 03/14/16 06:40 06:40 06:40 WBC 7.9 RBC 4.61 Hgb 13.8 Hct 39.6 MCV 85.9 MCHC 34.8 RDW 13.6 Plt Count 163 MPV 9.0 Neutrophils % 53.9 D Lymphocytes % 35.8 D Monocytes % 8.6 Eosinophils % 1.2 D Basophils % 0.5 Sodium 141 Potassium 4.0 D Chloride 106 Carbon Dioxide 28 Anion Gap 7 L BUN 6 L Creatinine 0.7 D Creat Clearance w eGFR > 60 Random Glucose 80 Calcium 8.5 Magnesium 1.9 Total Bilirubin 3.4 H AST 50 H ALT 59 D Alkaline Phosphatase 60 Total Protein 6.3 L Albumin 3.7 Hepatitis A Ab Total Negative Hep Bs Antigen Negative Hep Bs Antibody Non reactive Hep B Core Total Ab Negative Hepatitis C Antibody <0.1 CBCD WBC 7.9 K/mm3 (4.0-10.0) 03/14/16 06:40 RBC 4.61 M/mm3 (4.00-5.60) 03/14/16 06:40 Hgb 13.8 GM/dL (11.7-16.9) 03/14/16 06:40 Hct 39.6 % (35.4-49) 03/14/16 06:40 MCV 85.9 fl (80-96) 03/14/16 06:40 MCHC 34.8 g/dl (32.0-35.9) 03/14/16 06:40 RDW 13.6 % (11.9-15.9) 03/14/16 06:40 Plt Count 163 K/MM3 (134-434) 03/14/16 06:40 MPV 9.0 fl (7.5-11.1) 03/14/16 06:40 CMP Sodium 141 mmol/L (136-145) 03/14/16 06:40 Potassium 4.0 mmol/L (3.5-5.1) D 03/14/16 06:40 Chloride 106 mmol/L (98-107) 03/14/16 06:40 Carbon Dioxide 28 mmol/L (21-32) 03/14/16 06:40 Anion Gap 7 (8-16) L 03/14/16 06:40 BUN 6 mg/dL (7-18) L 03/14/16 06:40 Creatinine 0.7 mg/dL (0.7-1.3) D 03/14/16 06:40 Creat Clearance w eGFR > 60 (>60) 03/14/16 06:40 Random Glucose 80 mg/dL (74-106) 03/14/16 06:40 Calcium 8.5 mg/dL (8.5-10.1) 03/14/16 06:40 Total Bilirubin 3.4 mg/dL (0.2-1.0) H 03/14/16 06:40 AST 50 U/L (15-37) H 03/14/16 06:40 ALT 59 U/L (12-78) D 03/14/16 06:40 Alkaline Phosphatase 60 U/L (45-117) 03/14/16 06:40 Total Protein 6.3 g/dl (6.4-8.2) L 03/14/16 06:40 Albumin 3.7 g/dl (3.4-5.0) 01/09/17 06:40 Laboratory Tests 03/13/16 03/13/16 03/13/16 09:39 10:31 12:25 Total Bilirubin 3.2 H D Urine Color Straw Urine Appearance Clear Urine pH 9.0 H D Ur Specific [place] 1.011 Urine Protein Negative Urine Glucose (UA) Negative Urine Ketones 1+ H Urine Blood Negative Urine Nitrite Negative Urine Bilirubin Negative Urine Urobilinogen Negative Ur Leukocyte Esterase Negative Opiates Screen Positive Methadone Screen Negative Barbiturate Screen Negative Phencyclidine Screen Negative Ur Amphetamines Screen Negative MDMA (Ecstasy) Screen Negative Benzodiazepines Screen Negative Cocaine Screen Negative U Marijuana (THC) Screen Positive Hepatitis A Ab Total Hep Bs Antigen Hep Bs Antibody Hep B Core Total Ab Hepatitis C Antibody 03/14/16 03/14/16 06:40 06:40 Total Bilirubin 3.4 H Urine Color Urine Appearance Urine pH Ur Specific [place] Urine Protein Urine Glucose (UA) Urine Ketones Urine Blood Urine Nitrite Urine Bilirubin Urine Urobilinogen Ur Leukocyte Esterase Opiates Screen Methadone Screen Barbiturate Screen Phencyclidine Screen Ur Amphetamines Screen MDMA (Ecstasy) Screen Benzodiazepines Screen Cocaine Screen U Marijuana (THC) Screen Hepatitis A Ab Total Negative Hep Bs Antigen Negative Hep Bs Antibody Non reactive Hep B Core Total Ab Negative Hepatitis C Antibody <0.1 HOSPITAL COURSE: This is an otherwise healthy 20 year old male who presented to the ED for the third time this week complaining of vomiting/inability to tolerate oral fluids, epigastric pain, and some diarrhea. Prior workup on these visits included a CT of the abdomen/pelvis which demonstrated no pathology. Examination and investigations were done patient was diagnosed with viral gastroenteritis and his total bilrubin was 3.2. Patient was started on Iv fluid , zofran, clear liquid. and Hepatiec serology was done which is negative. Gastroentrologist Dr Ash was consulted he advised to continue with and supportive care and follow up liver enzymes in out patient. If they do not normalize then they will send esoteric liver ds such as danyel ds, autoimmune hepatitis, hemochometosis, things like that. Slowly condition of improved and patient started on regular diet. today patient feels better. Accepting orally no nausea and vomiting. Patient is discharged in stable condition. Advice Follow up with your pcp Follow up with gastroentrologist Dr Ash Your bilrubin is elevated so get your LFt done after 4 week and show result to your pcp and gastroentrologist Drink plenty of water If develop nausea, vomiting, diarrhoea, shortness of breath, chest pain than contact doctor or come to hospital. Date of Admission:03/13/16 Date of Discharge: 03/15/16 Minutes to complete discharge: 45 Discharge Summary Reason For Visit: GI ABDOMINAL PAIN NAUSEA AND VOMITING Current Active Problems Abdominal pain (Acute) DVT prophylaxis (Acute) Gastroenteritis (Acute) Nausea and vomiting (Acute) Total bilirubin, elevated (Acute) Condition: Stable - Instructions Diet, Activity, Other Instructions: Follow up with your pcp Follow up with gastroentrologist Dr Ash Get your LFt done after 4 week and show result to your pcp and gastroentrologist Drink plenty of water Don't drink alcohol and don't take acetaminophen If develop nausea, vomiting, diarrhoea, shortness of breath, chest pain than contact doctor or come to hospital. Referrals: Ulisses Ash MD [Staff Physician] - 2 Weeks Pita Newton MD [Staff Physician] - 1 Week Disposition: HOME - Home Medications Comprehensive Discharge Medication List: Ambulatory Orders Metoclopramide HCl [Reglan] 10 mg PO BID PRN #10 tablet 03/12/16 This patient is new to me today: No Emergency Visit: Yes ED Registration Date: 03/13/16 Care time: The patient presented to the Emergency Department on the above date and was hospitalized for further evaluation of their emergent condition. Critical Care patient: No - Discharge Referral Referred to [facility] No
[2016-03-15 07:23] LABS: BASOPHIL 0.6 % (0-2.0); EOSINOPHIL 1.3 % (0-4.5); MCH 29.8 pg (25.7-33.7); MCHC 34.8 g/dl (32.0-35.9); MEAN CELL VOLUME 85.7 fl (80-96); MEAN PLT VOLUME 8.9 fl (7.5-11.1); NEUTROPHILS 54.2 % (42.8-82.8); PLATELET COUNT 164 K/MM3 (134-434); RDW 13.2 % (11.9-15.9)
[2016-03-15 08:15] LABS: ALBUMIN 3.8 g/dl (3.4-5.0); ALK PHOS 55 U/L (45-117); ANION GAP 8 (8-16); BILIRUBIN,TOTAL 3.3 mg/dL (0.2-1.0); CALCIUM 8.5 mg/dL (8.5-10.1); CO2 27 mmol/L (21-32); CREATININE 0.8 mg/dL (0.7-1.3); GLUCOSE,RANDOM 83 mg/dL (74-106); SGOT/AST 35 U/L (15-37); SGPT/ALT 57 U/L (12-78); THYROID STIMULATING HORMONE 2.77 uIU/ml (0.358-3.74); TOT PROT 6.4 g/dl (6.4-8.2)
--- NOTE | 2016-03-15 09:34 | PN ---
Teaching Attending Note Name of Resident: Narciso Flanagan ATTENDING PHYSICIAN STATEMENT I saw and evaluated the patient. I reviewed the resident's note and discussed the case with the resident. I agree with the resident's findings and plan as documented. SUBJECTIVE: OBJECTIVE: Vital Signs Temperature 97.7 F 03/15/16 06:00 Pulse Rate 51 L 03/15/16 06:00 Respiratory Rate 20 03/15/16 06:00 Blood Pressure 126/68 03/15/16 06:00 O2 Sat by Pulse Oximetry (%) 97 03/14/16 04:00 GENERAL: The patient is awake, alert, and fully oriented, in no acute distress. HEAD: Normal with no signs of trauma. EYES: PERRL, extraocular movements intact, sclera anicteric, conjunctiva clear. No ptosis. ENT: Ears normal, nares patent, oropharynx clear without exudates, moist mucous membranes. NECK: Trachea midline, full range of motion, supple. LUNGS: Breath sounds equal, clear to auscultation bilaterally, no wheezes, no crackles, no accessory muscle use. HEART: Bradycardic, RR, S1, S2 without murmur, rub or gallop. ABDOMEN: Soft, nontender, nondistended, normoactive bowel sounds, no guarding, no rebound, no hepatosplenomegaly, no masses. EXTREMITIES: 2+ pulses, warm, well-perfused, no edema. NEUROLOGICAL: Cranial nerves II through XII grossly intact. Normal speech, gait not observed. PSYCH: Normal mood, normal affect. SKIN: Warm, dry, normal turgor, no rashes or lesions noted CBCD WBC 8.0 K/mm3 (4.0-10.0) 03/15/16 06:00 RBC 4.67 M/mm3 (4.00-5.60) 03/15/16 06:00 Hgb 13.9 GM/dL (11.7-16.9) 03/15/16 06:00 Hct 40.0 % (35.4-49) 03/15/16 06:00 MCV 85.7 fl (80-96) 03/15/16 06:00 MCHC 34.8 g/dl (32.0-35.9) 03/15/16 06:00 RDW 13.2 % (11.9-15.9) 03/15/16 06:00 Plt Count 164 K/MM3 (134-434) 03/15/16 06:00 MPV 8.9 fl (7.5-11.1) 03/15/16 06:00 CMP Sodium 142 mmol/L (136-145) 03/15/16 06:00 Potassium 3.9 mmol/L (3.5-5.1) 03/15/16 06:00 Chloride 107 mmol/L (98-107) 03/15/16 06:00 Carbon Dioxide 27 mmol/L (21-32) 03/15/16 06:00 Anion Gap 8 (8-16) 03/15/16 06:00 BUN 7 mg/dL (7-18) 03/15/16 06:00 Creatinine 0.8 mg/dL (0.7-1.3) 03/15/16 06:00 Creat Clearance w eGFR > 60 (>60) 03/15/16 06:00 Random Glucose 83 mg/dL (74-106) 03/15/16 06:00 Calcium 8.5 mg/dL (8.5-10.1) 03/15/16 06:00 Total Bilirubin 3.3 mg/dL (0.2-1.0) H 03/15/16 06:00 AST 35 U/L (15-37) D 03/15/16 06:00 ALT 57 U/L (12-78) 03/15/16 06:00 Alkaline Phosphatase 55 U/L (45-117) 03/15/16 06:00 Total Protein 6.4 g/dl (6.4-8.2) 03/15/16 06:00 Albumin 3.8 g/dl (3.4-5.0) 03/15/16 06:00 Current Medications Generic Name Dose Route Start Last Admin Trade Name Freq PRN Reason Stop Dose Admin Acetaminophen 650 mg 03/13/16 12:03 Tylenol - PO Q4H PRN FEVER OR PAIN Famotidine/Sodium Chloride 50 mls @ 100 mls/hr 03/13/16 22:00 03/14/16 21:01 Pepcid 20 Mg Premixed Ivpb - IVPB 100 mls/hr BID BHARTI Administration Ondansetron HCl 4 mg 03/13/16 12:03 Zofran Injection IVPB Q6H PRN NAUSEA ASSESSMENT AND PLAN: This is a 20 year old male with no significant PMHx who presented to the ED for the third time this week complaining of vomiting/inability to tolerate oral fluids, epigastric pain, and mild diarrhea. # s/p viral gastritis geting discharged home.,tolerating diet. #elevated bilrubin improving .follow GI as an outpatient , repeat cmp , Hepatitis panel dvt px :Scds gi pro on famotidinie Follow up with your pcp Follow up with gastroentrologist Dr Ash Your bilrubin is elevated , repeat LFts in 4 weeks and discuss the results with ur PCP and follow up with GI for further W/u if needed. Drink plenty of water
[2016-03-15] MEDS: FAMOTIDINE 20 MG/50 ML IVPB 50 ML IVPB SCH (09:44)
[2016-03-15 11:12] VITALS: BP 121/59; PULSE 59; TEMP 98.7
== END 2016-03-15 10:34 | disposition home or self-care (01) ==
LOC: JER 08:29 → JERBED 12:14 → J5S 15:40
PROVIDERS: ADMIT Internal Medicine; ATTEND Internal Medicine
DX: A08.4 Viral intestinal infection, unspecified (principal); F17.210 Nicotine dependence, cigarettes, uncomplicated
CPT/HCPCS: 36415; 76705-TC; 80053; 80307; 81003; 82248; 83605; 83690; 83735; 84443; 85025; 86704; 86706; 86708; 86803; 87340; 93005; 93010; 99284-25; G0378